=== PATIENT | female | born 1985 | race Caucasian/White ===

== ENCOUNTER 2016-11-17 05:53 | Inpatient (IN) | payer OTHER, MEDICAID ==
[~2016-11-17] VITALS: Ht 158.8 cm; Wt 88.0 kg
[2016-11-17] MEDS ORDERED: Lactated Ringer's 1,000 ML IV SCH (06:24)
[2016-11-17] MEDS ORDERED: Sodium Citrate-Citric Acid 15 mL Solution PO SCH (06:25)
[2016-11-17] MEDS ORDERED: Carboprost 250 mCg/mL Inj IM PRN ×2 (06:25→09:05)
[2016-11-17] MEDS ORDERED: Oxytocin 10 Unit/mL Inj IM PRN ×2 (06:25→09:05)
[2016-11-17] MEDS ORDERED: Hemorrhage Kit, Post Partum XX ONE ×2 (06:25→09:05)
[2016-11-17] MEDS ORDERED: Methylergonovine 0.2 mg/mL Inj IM PRN ×2 (06:25→09:05)
[2016-11-17] MEDS ORDERED: CeFAZolin Inj 2 GM in IV Premix 1 EACH IV ONE (06:25)
--- NOTE | 2016-11-17 06:48 | PCM.HPOB ---
Subjective Date of Service: Nov 17, 2016 Referring Provider: Admitting Physician: Reina Honeycutt MD Primary Care Physician: Reina Honeycutt MD Attending Physician: Reina Honeycutt MD Chief Complaint Rupture of membranes and contractions History of Present History of Present Illness The patient is a 31-year-old 38 weeks 3 days with EDC of 11/28/16 by LMP which was consistent with her first trimester ultrasound. She was scheduled for repeat section on 11/21/16 but overnight patient's membranes ruptured and she began to have contractions. is complicated by history of depression, previous section due to breech presentation, and GBS positive. Patient currently is resting comfortably and is having nonpainful contractions. Patient became a little lightheaded and dizzy with IV placement but blood pressure has remained stable and she denies any current symptoms. She denies any chest pain, palpitations, nausea, vomiting, fever, or chills. labs revealed blood type O positive, antibody negative, varicella immune, rubella immune, RPR nonreactive, hepatitis B surface antigen negative, HIV nonreactive, GBS positive. Obstetrical Complications: None Past Medical History Obstetrical History: Gynecologic History: Abnormal Pap and positive HPV in the past. Most recent Pap smear and HPV testing in April 2016 and satisfactory. Repeat Pap smear needed. Medical History: Depression Surgical History: section due to breech presentation Hx Tobacco Use: No Smoking Status: Never Smoker Hx Alcohol Use: No Hx Substance Use: No Past Family History Family History Father - hypertension Maternal aunt - diabetes mellitus Maternal grandmother - cancer Living Arrangement: with Family Genetic Screening/Counseling Genetic Screening: Cystic fibrosis (negative) Baby father-had child w defect: No Review of Systems Constitutional: Y: Change of appitite, Chills, Dizziness, Fever, Malaise, Other , Pain, Sweats, Weakness, Weight loss Eyes: Denies: Blurred Vision, Conjunctive Inflammation, Double Vision, Eyelid Inflammation, Other, Pain, Redness, Vision Changes Cardiovascular: Denies: Chest Pain, Edema, Orthopnea, Other, Palpitations, SOB while laying flat Respiratory: Denies: Cough, Cough with bloody sputum, Other, Pleuritic Chest Pain, Pleuritic Chest Pain, SOB with Exertion, Sputum, Wheezing Gastrointestinal: Denies: Abdominal Pain, Black tarry stools, Blood in stool ( red), Change in Appetite, Constipation, Diarrhea, Epigastric pain, Heartburn, Nausea, Other, Use of Laxatives, Vomiting Genitourinary: Denies: Anuria, Change in Frequency, Dysuria, Hematuria, Incontinence, Nocturia, Other, Retention Skin/Breasts: Denies: Bruising, Discharge, Dry or Flakiness, Jaundice, Lesions , Masses, Mastalgia, Other, Rash, Scars, Ulcers Neurological: Reports: Dizziness Psychologic: Denies: Agitation, Anxious, Apprehensive, Depression, Insomnia, Instability, Nervousness, Other Medications Home medications vitamin MiraLAX as needed Allergy Coded Allergies: No Known Allergies (Unverified , 11/17/16) Exam Vital Signs Patient afebrile, BP 122/76, pulse 62, RR 16 Exam Category 1 tracing with baseline heart rate of 140 bpm Constitutional: Well-developed, Well-nourished HEENT: Atraumatic, PERRLA, EOMI Lungs: Clear to Auscultation, Normal Air Movement Heart: Regular Rate/Rhythm, Normal S1, Normal S2, No Murmurs/Rubs/Gallops Abdomen: Gravid, Normal bowel sounds, Soft Lymphatic: Normal: Neck Palpation of Nodes Extremities: Pulses Palpable x4, No Edema Neurological/Psychiatric: Alert, Oriented X3, Cooperative, No Acute Distress Neuro: Grossly Neurologically Intact Labs/Diagnostics Maternal Blood Type: O Hx Rho(D) Immune Globulin: No Antibody Screen: negative Group B Strep Results: Positive Previous with GBS: Unknown Rubella: Immune OB Intrapartum Assessment/Plan Assessment 1. 30 weeks 3 days with EDC of 11/28/16 by LMP. 2. Rupture of membranes. 3. Prior section due to breech presentation. 4. History of depression currently not on medication. 5. GBS positive. Pain Evaluation: Adequate Pain Control Intrapartum plan 1. section planned for today (11/17) 2. Plan for routine care. Attending Statement The patient was seen and examined together with Dr. Erum Irving DO on 2016 and I agree with the history, exam and plan as outlined in the note above. ERUM IRVING DO Nov 17, 2016 06:48 Cherelle Liu MD Nov 17, 2016 09:23
[2016-11-17 07:36] LABS: Mean Corpuscular Hemoglobin 27.4 pg (27.0-35.0); Mean Corpuscular Volume 83.3 fL (81-100)
--- NOTE | 2016-11-17 08:15 | PCM.HPANE ---
Patient Data Date of Service: Nov 17, 2016 (07) Surgeon Admitting Provider:Reina Honeycutt MD Attending Provider:Reina Honeycutt MD Primary Care Physician:Reina Honeycutt MD Other Provider:Irwin Gross Anesthesia Reason for Visit Term Labor Repeat C/S TERM LABOR REPEAT C/S Ht/WT & BMI Body Mass Index Allergies Coded Allergies: No Known Allergies (Unverified , 11/17/16) Diabetes History Hx Diabetes?: No History Cardiovascular History: Denies:: Congestive Heart Failure Hypertension Respiratory History: Denies:: Tuberculosis Hx Diabetes: No Hx Alcohol Use: NoHx Substance Use: No Smoking Status: Never Smoker Have You Smoked inLast 12 mo: No Stop/Bang Risk Assessment Category Category 1A: Patient has history of documented sleep apnea, and HAS NOT received any narcotic, sedative or anesthesia administration during this stay. Category 1B: Patient has history of documented sleep apnea, and HAS received any narcotic , sedative or anesthesia administration during this stay Category 2: Patient has SUSPECTED Obstructive Sleep Apnea, and HAS received any narcotic , sedative or anesthesia administration during this stay. Category 3: Patient has SUSPECTED Obstructive Sleep Apnea and HAS NOT received narcotic, sedative or anesthesia administration during this stay. Category 4: Outpatient in Procedural Areas with known sleep apnea or who screen positive for High Risk via the STOP/BANG questionnaire. Exam Exam General Appearance: Alert, Oriented X3, Cooperative, No Acute Distress HEENT/AIRWAY: MP 2 Lungs: Clear to Auscultation Heart: Exam Unremarkable Meds/Labs/Diagnostics Admission Meds Current Medications Lactated Ringer's 1,000 ml @ 125 mls/hr Q8H IV Last administered on 11/17/16 07:10; Start 11/17/16 at 06:24; Stop 11/17/16 at 14:23 Cefazolin Sodium/ Dextrose/Premix (Ancef Inj / D5W 50mL/IV Premix) 50 ml @ 100 mls/hr ONCE ONCE IV Last administered on 11/17/16 07:29; Start 11/17/16 at 06 :25; Stop 11/17/16 at 06:54; Status DC Labs Test 11/17/16 06:55 White Blood Count 9.3th/mm3 (3.8-10.1) Red Blood Count 3.54mil/mm3 (3.90-5.20) Hemoglobin 9.7g/dL (12.0-15.6) Hematocrit 29.5% (35.0-46.0) Mean Corpuscular Volume 83.3fL (81-100) Mean Corpuscular Hemoglobin 27.4pg (27.0-35.0) Mean Corpuscular Hemoglobin Concent 32.9% (32.0-37.0) Red Cell Distribution Width 13.2% (12.3-15.4) Platelet Count 204bil/L (150-400) Plan Impression Patient chart reviewed, patient interviewed and anesthestic plan with risks, benefits, and alternatives discussed, and informed consent obtained. ASA Physical Status: ASA1 Normal Healthy Anesthetic Plan: SAB Bene/Risks/Altern/Consents: Yes HP Complete Prior to Induction: Yes Joel Marquez MD Nov 17, 2016 08:15
[2016-11-17] MEDS ORDERED: Lactated Ringer's 1,000 ML IV PRN (08:33)
[2016-11-17] MEDS ORDERED: HYDROmorphone 1 mg/mL Inj IVPUSH PRN (08:35)
[2016-11-17] MEDS ORDERED: Ondansetron 2 mg/mL 2 mL Inj IVPUSH PRN (08:35)
[2016-11-17] MEDS ORDERED: Morphine PF 1 mg/mL 10 mL Inj INTRATHEC ONE (08:35)
[2016-11-17] MEDS ORDERED: fentaNYL-PF 50 mCg/mL 2 mL Inj IVPUSH PRN (08:35)
[2016-11-17] MEDS ORDERED: EPHEDrine Sulfate 50 mg/mL Inj IVPUSH PRN (08:35)
[2016-11-17] MEDS ORDERED: Atropine 0.4 mg/mL Inj IV PRN (08:35)
[2016-11-17] MEDS ORDERED: Dexamethasone 4 mg/mL Inj IVPUSH PRN (08:35)
[2016-11-17] MEDS ORDERED: MetoCLOpramide 5 mg/mL 2 mL Inj IVPUSH PRN (08:35)
[2016-11-17] MEDS ORDERED: fentaNYL-PF 50 mCg/mL 2 mL Inj ONE (08:59)
[2016-11-17] MEDS ORDERED: Morphine PF 1 mg/mL 10 mL Inj ONE (08:59)
[2016-11-17] MEDS ORDERED: Oxytocin 10 Unit/mL Inj ONE (08:59)
[2016-11-17] MEDS ORDERED: Bupiv-Spinal 0.75%/Dex 8.25% 2 mL Inj ONE ×2 (08:59→09:08)
[2016-11-17] MEDS ORDERED: Ondansetron 2 mg/mL 2 mL Inj ONE ×2 (08:59→09:08)
[2016-11-17] MEDS ORDERED: Phenylephrine/NS 100 mCg/mL 10 mL Syringe IVPUSH ONE ×2 (08:59→09:08)
[2016-11-17] MEDS ORDERED: Dexamethasone 4 mg/mL Inj ONE ×2 (08:59→09:08)
[2016-11-17] MEDS ORDERED: Sodium Chloride LOK Flush 10 mL Syringe IVFLUSH PRN (09:05)
[2016-11-17] MEDS ORDERED: Oxytocin 30 Units/500 mL LR 30 UNITS in IV Premix 1 EACH IV PRN (09:05)
[2016-11-17] MEDS ORDERED: LANOlin HPA 7 Gm Ointment TOPICAL PRN (09:05)
--- NOTE | 2016-11-17 09:18 | PCM.SURGOP ---
Surgical Operative Report Date of Service: Nov 17, 2016 Pre Operative Diagnosis 1. 38 weeks gestation 2. Previous delivery desires repeat Post Operative Diagnosis 1. 38 weeks gestation 2. Previous delivery desires repeat Procedure: 1. Repeat low transverse Surgeon and Cash Crop Farmer: Surgeon: Cherelle Liu MD Assistants: Grazyna Bains MD was necessary for this procedure to help with exposure and delivery of . Indication for Procedure Patient is a 31-year-old 2 para 1 with a history of a previous delivery for a breech presentation. She desired a repeat delivery. She presented to the [facility] at 38 weeks and 3 days gestation with spontaneous rupture of membranes. Findings: Intraoperative findings showed some dense adhesions of the bladder to the posterior and inferior margin of the rectus muscles. Otherwise the lower uterine segment was free of adhesions. There was a female in the cephalic presentation with Apgars of 9 and 9. Infant weight was 3170 g. Procedure Details The patient was taken to the operating room where her spinal anesthesia was found be adequate. She was placed in lithotomy position in a leftward tilt and prepared and draped in normal sterile fashion. An appropriate timeout was performed. A Pfannenstiel incision was made through her previous skin incision scar. This incision was carried down to the underlying fascia with the Bovie cautery. The fascia was nicked in the midline and the incision was extended laterally with the [place]os scissors. The underlying rectus muscles dissected off with blunt and sharp dissection. The peritoneum was entered bluntly with the surgeon's hands and this incision was extended with gentle traction. The rectus muscle inferiorly was using sharp dissection. Careful attention was made to the location of the bladder. A bladder flap was created and the uterus incised in low transverse fashion with a scalpel. The infant was delivered in the cephalic presentation without difficulty. The umbilical cord was doubly clamped and ligated after 1 minute. The was handed off to the waiting nurses and respiratory therapist. The placenta was removed manually and the uterus was exteriorized and cleared of all clot and debris.The uterine incision was then repaired in 2 layers with 0 Vicryl suture. Good hemostasis assured. The gutters were then irrigated with copious amounts of normal saline and uterus returned the patient's peritoneal cavity. The fascia was reapproximated with 2 sutures of 0 Vicryl suture that were anchored at the apices and ran to the midline and tied separately. The subcutaneous layer was closed with 0 plain gut. Skin was closed with 4-0 Monocryl in a subcutaneous fashion and Dermabond and Steri-Strips were applied All lap instrument and needle counts are correct 2 at the procedure. Complications There were no periprocedural complications identified. Surgical Specimen Removed: Yes Specimen sent to Pathology: No Surgical Specimen description: Placenta was normal in appearence and not sent to pathology Anesthetic Plan: SAB Grafts, Implants: None Output, Estimated Blood Loss: 500 Blood Administration during montoya: No Drains: None Catheters: None Post Operative Plan routine and postoperative care Cherelle Liu MD Nov 17, 2016 09:18
--- NOTE | 2016-11-17 09:24 | PCM.ANEP1 ---
Post Anesthesia Phase 1 PACU Phase 1 Assessment Date of Service: Nov 17, 2016 Anesthetic Administered: SAB Level of Alertness: Awake, talking HOLDER's with Equal Strength: No (spinal) Pain: No Nausea or Vomiting: No Oxygen Delivery: Room Air Lungs: Clear to Auscultation Joel Marquez MD Nov 17, 2016 09:24
--- NOTE | 2016-11-17 09:29 | PCM.ANEP2 ---
Post Anesthesia Evaluation ASA/CMS Post Anesthesia VS in Patient's Normal Range?: Yes Resp Stable; Airway Patent?: Yes CV Function & Hydration Stable: Yes Mental Status Recovered?: Yes Pain control Satisfactory?: Yes N/V Control Satisfactory?: Yes Joel Marquez MD Nov 17, 2016 09:29
[2016-11-17] MEDS: Lactated Ringer's 1,000 ML IV SCH ×2 (09:38→17:02)
[2016-11-17] MEDS: Acetaminophen IV 1,000 MG in IV Premix 1 EACH IV PRN ×2 (10:12→16:13)
[2016-11-17] MEDS: oxyCODONE-Acetamin 5-325 mg Tablet PO PRN (20:52)
[2016-11-18] MEDS: oxyCODONE-Acetamin 5-325 mg Tablet PO PRN ×5 (03:52→21:56)
--- NOTE | 2016-11-18 06:43 | PCM.PNOBPP ---
Subjective Date of Service Nov 18, 2016 Post : Repeat Cesere[place] Delivery Subjective The patient is a 31-year-old day one after repeat section. Patient and baby are doing well. Curry was removed this morning patient is urinating without issue. Lochia is normal. Pain is well controlled at this time with Percocet. She has been able to eat without nausea and vomiting. Ambulate in the room without difficulty. She is struggling with breast-feeding somewhat and will see the government operations consultant today. She also notes feeling anxious and down about not being able to care for her daughter as she is not breast-feeding well yet. She acknowledges that breast-feeding takes time but still becomes tearful. She has struggled with depression or and with her last . She has used Prozac and citalopram in the past with minimal benefit. She is interested in trying a different medication. Patient this time will use condoms for contraception. Discussion has been had about other methods of contraception but the patient has had difficulties with IUD and OCPs in the past. We will revisit the subject at visit. Lochia: Normal Pain Management: PO pain meds Gastrointestinal: No N/V, Passing Flatus Postop Activity: Ambulate without Assist Labs Blood type O positive, antibody negative, varicella immune, rubella immune, RPR nonreactive, hepatitis B surface antigen negative, HIV nonreactive, GBS positive. Group B Strep Results: Positive Rubella: Immune Blood Type: O RH Type: Positive Labs Laboratory Tests 11/17/16 06:55: White Blood Count 9.3, Red Blood Count 3.54, Hemoglobin 9.7, Hematocrit 29.5, Mean Corpuscular Volume 83.3, Mean Corpuscular Hemoglobin 27.4, Mean Corpuscular Hemoglobin Concent 32.9, Red Cell Distribution Width 13.2, Platelet Count 204 Exam Vital Signs Vital Signs: VS reviewed, stable Exam Abdomen: Uterus is, Fundus firm Perineum: Intact : Voiding without difficulty Extremities: No tenderness/swelling Lungs: Clear to Auscultation, Normal Air Movement Heart: Regular Rate/Rhythm, Normal S1, Normal S2, No Murmurs/Rubs/Gallops General: Alert, Oriented X3, Other (slightly tearful) Surgical Wound : Wound Location/Description Pfannenstiel incision Incision General Appearence: Wound under dressing Dressing & Drainage Status: Dry & Intact, No Odor OB Post Assessment/Plan Assessment 1. day one after repeat section. 2. History of prior section due to breech presentation. 3. History of depression and depression. 4. GBS positive. Pain Evaluation: Adequate Pain Control Plan: 1. She is doing well and meeting all goals. Will continue routine care at this time. 2. IV pain medications discontinued at this time and patient tolerating oral pain medications with Percocet and ibuprofen as needed. 3. Encourage ambulation and general diet. 4. Patient slightly tearful and struggling with anxiety and depression. Will start patient on Zoloft 50 mg daily. 5. Patient to work with product distribution specialist. 6. Plan for discharge tomorrow morning. ERUM IRVING DO Nov 18, 2016 06:43
[2016-11-18] MEDS: Ascorbic Acid 500 mg Tablet PO SCH (07:52)
[2016-11-18] MEDS: Lactated Ringer's 1,000 ML IV SCH (09:02)
[2016-11-19] MEDS: oxyCODONE-Acetamin 5-325 mg Tablet PO PRN ×3 (02:43→13:45)
[2016-11-19] MEDS: Ascorbic Acid 500 mg Tablet PO SCH (08:27)
--- NOTE | 2016-11-19 08:48 | PCM.DC.OB ---
Obstetrical Discharge Summary Date of Service Nov 19, 2016 Date of hospital admission Nov 17, 2016 at 06:12 Date of Discharge: Nov 19, 2016 Providers Admitting Physician: Reina Honeycutt MD Primary Care Physician: Reina Honeycutt MD Attending Physician: Reina Honeycutt MD Diagnosis at Time of Discharge 1. Post Operative day #2 status post Repeat low transverse on 2016. 2. Chronic anemia and Post- anemia. 3. Depression controlled with medications Problems: Brief History and Physical: Hospital Course: The patient is a 31-year-old G2 now P2002 presented at 38 weeks 3 days with spontaneous rupture of membranes and contractions. is complicated with: 1. history of depression 2. previous section due to breech presentation 3. GBS positive. OUTCOME: female in the cephalic presentation with Apgars of 9 and 9. weight was 3170 g. DISCHARGE DAY EXAM: Postoperative day number 2, patient is ambulating, tolerating regular diet without nausea or vomiting and voiding without difficulty. Pain was well controlled. No chest pain, no headache or change in vision. VS: BP 93/50 HR 66 Respirations 18 SaO2 Temp 36.9 General: Alert, Oriented X3 Lungs: Clear to Auscultation, Clear to Percussion Heart: Regular Rate/Rhythm, Normal S1, Normal S2 Abdomen: Fundus firm Surgical Wound: Incision General Appearance: Steri Strips, Sutures, Intact, Well Approximated, Incision Healing, No Erythema, No Discharge Extremities: No tenderness/swelling, Edema 1+ Lochia: normal. LABS: Laboratory Tests 72 Hours Test 11/17/16 06:55 11/18/16 07:03 White Blood Count 9.3th/mm3 (3.8-10.1) 11.5th/mm3 (3.8-10.1) Red Blood Count 3.54mil/mm3 (3.90-5.20) 3.07mil/mm3 (3.90-5.20) Hemoglobin 9.7g/dL (12.0-15.6) 8.3g/dL (12.0-15.6) Hematocrit 29.5% (35.0-46.0) 26.1% (35.0-46.0) Mean Corpuscular Volume 83.3fL (81-100) 85.0fL (81-100) Mean Corpuscular Hemoglobin 27.4pg (27.0-35.0) 27.0pg (27.0-35.0) Mean Corpuscular Hemoglobin Concent 32.9% (32.0-37.0) 31.8% (32.0-37.0) Red Cell Distribution Width 13.2% (12.3-15.4) 13.1% (12.3-15.4) Platelet Count 204bil/L (150-400) 184bil/L (150-400) labs: blood type O positive, antibody negative, varicella immune, rubella immune, RPR nonreactive, hepatitis B surface antigen negative, HIV nonreactive, GBS positive. Disposition: home. Discharge Condition: stable. Diet Discharge Diet: No restrictions Activity Discharge Activity-General: Pelvic Rest for 6 weeks (no sex, no tampon and no douching), Balance rest and activity, No lifting >10 pounds for 4-6 weeks Dressing and Incision Care Hygiene: May shower, Wash incision with soap & water (then keep incision dry) Follow Up Plan Follow-up Provider (F9): Cherelle Liu MD Follow-up appointment: Weeks (Two) for incision check then in 6 weeks for post- visit. Call your provider for: fever or chills, shortness of breath, heavy vaginal bleeding, heavy bleeding, epigastric pain, excessive constipation, vaginal discomfort, red painful breasts, other (leg swelling, pain, nausea and vomiting , headache or change in vision.) ([Ascorbic Acid]) 250 TABLET 500 MG PO TID Prescribed by: NICOLE CALZADA MD Docusate Sodium (Colace) 100 Mg Capsule 100 MG PO TIDWM PRN PRN For Constipation Prescribed by: NICOLE CALZADA MD Ibuprofen (Ibuprofen) 600 Mg Tablet 600 MG PO Q6H PRN PRN For Pain Prescribed by: NICOLE CALZADA MD Sertraline HCl (Sertraline) 50 Mg Tablet 50 MG PO DAILY Prescribed by: NICOLE CALZADA MD oxyCODONE-Acetaminophen 5-325 mg (oxyCODONE-Acetaminophen 5-325 mg) 1 Each Tablet 1-2 TAB PO Q4H PRN PRN For Pain Prescribed by: MD Massimo BERKOWITZ Omaima A MD Nov 19, 2016 08:34
[2016-11-19] MEDS ORDERED: DOCU-41 PO (09:13)
[2016-11-19] MEDS ORDERED: SERT50TA9 PO (09:13)
[2016-11-19] MEDS ORDERED: Ascorbic Acid PO (09:13)
[2016-11-19] MEDS ORDERED: OXYC1TAB24 PO (09:54)
[2016-11-19] MEDS ORDERED: IBUP-1827 PO (09:54)
--- NOTE | 2016-11-19 10:34 | PCM.DIOB ---
Obstetrical Disch Instruction Dates of Hospitalization Date of Hospital Admission Nov 17, 2016 at 06:12 Providers Admitting Physician: Reina Honeycutt MD Primary Care Physician: Reina Honeycutt MD Attending Physician: Reina Honeycutt MD Discharge Diagnosis Discharge Diagnosis 1. Post Operative day #2 status post Repeat low transverse on 2016. 2. Chronic anemia and Post- anemia. 3. Depression controlled with medications Post Operative diagnosis 1. Post Operative day #2 status post Repeat low transverse on 2016. 2. Chronic anemia and Post- anemia. 3. Depression controlled with medications Disposition: home. Discharge Condition: stable. Diet Discharge Diet: No restrictions Activity Discharge Activity-General: Pelvic Rest for 6 weeks (no sex, no tampon and no douching), Balance rest and activity, No lifting >10 pounds for 4-6 weeks Dressing and Incision Care Hygiene: May shower, Wash incision with soap & water (then keep incision dry) Follow Up Plan Follow-up Provider (F9): Cherelle Liu MD Follow-up appointment: Weeks (Two) for incision check then in 6 weeks for post- visit. Call your provider for: fever or chills, shortness of breath, heavy vaginal bleeding, heavy bleeding, epigastric pain, excessive constipation, vaginal discomfort, red painful breasts, other (leg swelling, pain, nausea and vomiting , headache or change in vision.) Problems: Regino Keys MD Nov 19, 2016 10:34
[2016-11-19 13:10] VITALS: BP 117/48; PULSE 82; RESP 16
[2016-11-19] MEDS ORDERED: FERR-74 PO (13:51)
== END 2016-11-19 15:13 | disposition home or self-care (01) | DRG 766 ==
LOC: FBCO 05:53 → FBC 06:12
PROVIDERS: ADMIT Obstetrics & Gynecology; ATTEND Obstetrics & Gynecology
PROC: 10D00Z1 Extraction of Products of Conception, Low, Open Approach (ICD-10-PCS; principal; 2016-11-17 07:30)
DX: O75.82 Onset (spontaneous) of labor after 37 completed weeks of gestation but before 39 completed weeks gestation, with delivery by (planned) cesarean section (principal); F32.9 Major depressive disorder, single episode, unspecified; O34.219 Maternal care for unspecified type scar from previous cesarean delivery; O99.824 Streptococcus B carrier state complicating childbirth; O99.344 Other mental disorders complicating childbirth; Z3A.38 38 weeks gestation of pregnancy; Z37.0 Single live birth